=== PATIENT | female | born 1930 | race Caucasian/White ===

== ENCOUNTER → 2017-12-12 | Emergency (ER) | payer OTHER, MEDICARE ==
[~2017-12-12] MED LIST: ASPIRIN81 M4 PO; CALCIUM 500 +1 EAC5 PO; COZAAR100 M1 PO; DEXAMETHASONE4 M1 PO; FOLIC ACID1 M1 PO; LOVASTATIN40 M1 PO; LUMIGAN2.5 ML OPH; OMEPRAZOLE20 M2 PO; PROAIR HFA8.5 GM INH; PROCHLORPERAZIN10 MG PO; PROPRANOLOL HCL40 M1 PO; TRAMADOL HCL50 M1 PO; ZOFRAN ODT8 M1 PO
--- NOTE | 2017-12-12 05:52 | ED AMS/SEIZURE/WEAK/DIZZY ---
See Addendum History of Present Illness General Chief Complaint: General Adult Stated Complaint: L ARM WEAKNESS Source: patient, old records, EMS Exam Limitations: no limitations Vital Signs & Intake/Output Vital Signs & Intake/Output Vital Signs Date Time Temp Pulse Resp B/P B/P Pulse O2 O2 Flow FiO2 Mean Ox Delivery Rate 12/12 0843 97.4 78 18 140/68 96 12/12 0821 97.4 78 18 140/68 95 12/12 0550 97.7 81 22 139/73 98 Room Air Allergies Coded Allergies: lisinopril (COUGH 12/12/17) Reconcile Medications Albuterol Sulfate (Proair Hfa) 90 MCG HFA.AER.AD 2 PUF INH Q4-6 PRN PRN SOB ( Reported) Aspirin (Aspirin*) 81 MG TAB.CHEW 1 TAB PO DAILY HEART (Reported) Bimatoprost (Lumigan) 0.01 % DROPS 1 GTT OPH QPM EYE (Reported) Calcium Carbonate/Vitamin D3 (Calcium 500 + D Tablet) 500 MG-400 TABLET 1 TAB PO BID VITAMIN (Reported) Dexamethasone 4 MG TABLET 4 TAB PO DAILY INFLAMMATION (Reported) Folic Acid 1 MG TABLET 1 TAB PO DAILY VITAMIN (Reported) Losartan (Cozaar) 100 MG TABLET 1 TAB PO DAILY HTN (Reported) Lovastatin 40 MG TABLET 1 TAB PO DAILY CHOL (Reported) with food Omeprazole 20 MG CAPSULE.DR 1 CAP PO DAILY GERD (Reported) Ondansetron (Zofran Odt) 8 MG TAB.RAPDIS 1 TAB PO TID NAUSEA (Reported) place on top of the tongue where it will dissolve, then swallow Prochlorperazine Maleate 10 MG TABLET 1 TAB PO Q6 NAUSEA (Reported) Propranolol LA (Inderal LA) 80 MG CAP.SA.24H 40 MG PO DAILY HTN (Reported) Tramadol HCl 50 MG TABLET 1 TAB PO Q6P PRN PAIN (Reported) Triage Note: PER PT AND EMS HX OF LUNG CANCER WITH METS TO BRAIN OPTED FOR NO TREATMENT, PT TO GO ON HOSPICE THURSDAY, TONIGHT WITH LOSS OF USE OF L ARM, NO CO PAIN SOB APPEARS COMF. PT REPORTS SIGNED AN DNR 2 DAYS AGO NOT BROUGHT TO HOSPITAL Triage Nurses Notes Reviewed? yes Onset: Abrupt Duration: hour(s): Timing: recent history Injury Environment: home Severity: severe Modifying Factors: Improves With: rest. 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 with sudden onset of left arm and left leg weakness. She notes that she has enrolled in hospital care and that she is due to start in 2 days (Thursday) with thrice weekly home health services. She expresses understanding that the goal of care is to keep herself comfortable. She declines blood work and imaging. She shares, "But I will need more help because I can't walk." (Kentrell BARRERA,Brian Pierre) Past History Travel History Traveled to [place] past 21 day No Medical History Any Pertinent Medical History? see below for history Neurological: BRAIN METS EENT: NONE Cardiovascular: CAD, hypertension, CHOL Respiratory: COPD Gastrointestinal: GERD Hepatic: PANCREATIC CYST Musculoskeletal: NONE Psychiatric: NONE Endocrine: NONE Cancer(s): LUNG CANCER Surgical History Surgical History: none Psychosocial History What is your primary language Lao Tobacco Use: Quit >30 days ago Family History Hx Contributory? No (Kentrell BARRERA,Brian Pierre) Review of Systems Review of Systems Constitutional: Reports: no symptoms. EENTM: Reports: no symptoms. Respiratory: Reports: no symptoms. Cardiovascular: Reports: no symptoms. GI: Reports: no symptoms. Genitourinary: Reports: no symptoms. Musculoskeletal: Reports: no symptoms. Skin: Reports: no symptoms. Neurological/Psychological: Reports: no symptoms. Hematologic/Endocrine: Reports: no symptoms. Immunologic/Allergic: Reports: no symptoms. All Other Systems: Reviewed and Negative (Kentrell BARRERA,Brian Pierre) Physical Exam Physical Exam General Appearance: well developed/nourished, no apparent distress Head: atraumatic, normal appearance Eyes: Bilateral: normal appearance, PERRL, EOMI. Ears, Nose, Throat: normal pharynx, normal ENT inspection, hearing grossly normal Neck: normal inspection, supple, full range of motion Respiratory: chest non-tender, no respiratory distress, quiet respiration Cardiovascular: regular rate/rhythm Gastrointestinal: normal bowel sounds, soft, non-tender, no organomegaly Back: normal inspection, normal range of motion, vertebral tenderness Extremities: no ligament instability Neurologic/Psych: awake, alert, oriented x 3, left arm and leg strength 2/6, diminished reflexes and diminished subjective light touch of arm and leg. Skin: intact, normal color, warm/dry Core Measures ACS in differential dx? No CVA/TIA Diagnosis No Sepsis Present: No Sepsis Focused Exam Completed? No (Kentrell BARRERA,Brian Pierre) Progress Differential Diagnosis: brain mets vs other. Plan of Care: Orders Procedure Date/time Status Regular Diet 12/12 B Active CASE MANAGEMENT CONSULT 12/12 614 Active Current Medications Sig/Maria E Start time Last Medication Dose Stop Time Status Admin Dexamethasone 4 MG BID 12/12 1000 UNVr (Decadron) Initial ED EKG: none Hand-Off Endorsed To: Bulmaro Marroquin DO Endorsed Time: 0700 Pending: consult (Kentrell BARRERA,Brian Pierre) Departure Departure Disposition: STILL A PATIENT Condition: Stable Clinical Impression Primary Impression: Brain metastases Secondary Impressions: Left-sided weakness Referrals: Lakeisha BARRERA,Cyrus Fry (PCP/Family) Departure Forms: Customer Survey General Discharge Information Comments 12/12/17, 5:55am... discussed at great length... the goal of care is comfort measures / hospice. She states, "I don't want any scans or tests... just keep me comfortable." She has enrolled with hospice and is due to start thursday with home health visits TIW. Will consult case management to augment hospice services to allow her to go home. Pt signed out to Dr. Marroquin at 12/12/17, 7am. (Kentrell BARRERA,Brian Pierre) Departure Comments 12/12/17 9:21 AM Patient was signed out to me by Dr. Pfeiffer at 7 AM. She is pending home assisted services by case management. (Bulmaro Marroquin DO)
[2017-12-14 13:57] VITALS: BP 146/65
== END ==
LOC: ERH 05:38
DX: C79.31 Secondary malignant neoplasm of brain (principal); R53.1 Weakness
CPT/HCPCS: J3490